=== PATIENT | female | born 1950 | race Caucasian/White ===

== ENCOUNTER 2017-06-01 08:07 | Day surgery (SDC) | payer MEDICARE ==
[2017-05-31 12:33] VITALS: BMI 42.9
[~2017-06-01 08:07] MED LIST: Dexamethasone 20 MG/5 ML VIAL ONE; Glycopyrrolate 0.2 MG/ML 5 ML SYRINGE ONE; Ketorolac Tromethamine 30 MG/ML VIAL ONE; Lidocaine 1% PF 5 ML VIAL ONE; Ondansetron HCl/PF 4 MG/2 ML Vial ONE; PHENYLEPHRINE-NS 100 MCG/ML 10 ML SYRINGE ONE; PROPOFOL 200 MG/20 ML VIAL ONE; ePHEDrine/0.9% NaCl/PF SYRINGE 50 mg/10 ml ONE
[2017-06-01] MEDS ORDERED: Bacitracin Zinc Ointment 30 gm TUBE ONE (08:58)
[2017-06-01] MEDS ORDERED: Thrombin 5000 UNITS/5 ML VIAL ONE (08:58)
[2017-06-01] MEDS ORDERED: Sodium Chloride 0.9% 10 ML ONE (08:58)
[2017-06-01] MEDS ORDERED: CEFAZOLIN/Water 2 GM/20 ML SYRINGE ONE (09:15)
[2017-06-01 09:23] LABS: Hemoglobin 13.7 g/dL (12.0-16.0); Mean Corpuscular HGB CONC 31.2 g/dL (32.0-36.0); Mean Corpuscular Hemoglobin 29.8 pg (27.0-31.0); Mean Corpuscular Volume 95.5 fl (81.0-99.0); Mean Platelet Volume 7.7 fL (7.4-10.4); Platelet Count 226 thou/uL (130-400); RBC Distribution Width 11.8 % (11.5-14.5); White Blood Cell (WBC) Count 7.1 thou/uL (4.8-10.8)
[2017-06-01 09:31] LABS: INR-International Normal Ratio 0.9; PTT 26.6 SEC (22.9-36.1); Prothrombin Time 12.6 SEC (12.0-14.7)
[2017-06-01 09:37] LABS: Anion Gap 16 mmol/L (10-20); BUN (Urea Nitrogen) 17 mg/dL (9.8-20.1); Calc. Creatinine Clearance 119 mL/min (70-130); Calcium 9.3 mg/dL (7.8-10.44); Carbon Dioxide 20 mmol/L (23-31); Chloride 107 mmol/L (98-107); Estimated GFR-MDRD 71; Glucose 164 mg/dL (80-115); Potassium 4.3 mmol/L (3.5-5.1); Sodium 139 mmol/L (136-145)
[2017-06-01] MEDS ORDERED: Fentanyl 100 MCG/2 ML VIAL ONE ×4 (09:43→13:44)
--- NOTE | 2017-06-01 12:07 | OP ---
DATE OF PROCEDURE: 06/01/2017 SURGEON: Flex Celaya M.D. GLASS SCULLION: Jame Romero PA-C OR: OR #12 WOUND TYPE: Type 1 wound. PREPROCEDURE DIAGNOSES: Multilevel lumbar stenosis with low back and leg pain. POSTPROCEDURE DIAGNOSES: Multilevel lumbar stenosis with low back and leg pain. PROCEDURE: L3-L4, L4-L5 laminectomies, partial facetectomies and foraminotomies over the L3, L4, L5 nerve roots bilaterally. DESCRIPTION OF PROCEDURE: After informed consent was obtained from the patient, the patient brought to OR 12. Proper patient pause and identification was carried out. She was placed in excellent endo tracheal anesthesia and positioned prone on the operating table. All appropriate points were padded. We anca out a linear irais over the L3, L4, L5 dorsal spines and this region was sterilely cleansed, prepared, and draped. Proper patient pause and identification was carried out. The wound was then opened with a combination of sharp, monopolar and blunt dissection. The L3, L4, L5 dorsal spines and lamina were exposed and localization film confirmed our area of interest. We then performed an L3, L4, L5 laminectomies, partial facetectomies and foraminotomies over the L3, L4, L5 nerve roots. We h ad excellent decompression of the common dural tube and the nerve roots and copious irrigation occurr ed throughout as did maximizing hemostasis. The wound was then closed following the sprinkling of va ncomycin powder in anatomic layers. The patient emerged from anesthesia.
[2017-06-01] MEDS ORDERED: HYDROmorphone 0.5 MG/0.5 ML SYRINGE ONE (12:18)
[2017-06-01] MEDS ORDERED: Bisacodyl 10 MG SUPP PR PRN (12:49)
[2017-06-01] MEDS ORDERED: Acetaminophen 325 MG TAB PO PRN (12:49)
[2017-06-01] MEDS ORDERED: Milk Of Magnesia 30 ML UDCUP PO PRN (12:49)
[2017-06-01] MEDS ORDERED: Fleet Enema 133 ML BOT PR PRN (12:49)
[2017-06-01] MEDS ORDERED: Mag-Al 1200 mg/1200 mg/30 ML UDCUP PO PRN (12:49)
[2017-06-01] MEDS ORDERED: Promethazine HCl 25 MG/ML VIAL IM PRN ×2 (12:49→12:56)
[2017-06-01] MEDS ORDERED: clonazePAM 1 MG TAB PO PRN (12:52)
[2017-06-01] MEDS ORDERED: Ondansetron HCl/PF 4 MG/2 ML Vial IVP PRN (12:56)
[2017-06-01] MEDS ORDERED: HYDROmorphone 2 MG/ML VIAL SLOW IVP PRN (12:56)
[2017-06-01] MEDS ORDERED: Promethazine HCl 25 MG/ML VIAL SLOW IVP PRN (12:56)
[2017-06-01] MEDS: Morphine 2 MG/ML SYRINGE SLOW IVP PRN (15:52)
--- NOTE | 2017-06-01 16:38 | EKG ---
Test Reason : PREOP Blood Pressure : / mmHG Vent. Rate : 052 BPM Atrial Rate : 052 BPM P-R Int : 180 ms QRS Dur : 090 ms QT Int : 444 ms P-R-T Axes : 043 046 042 degrees QTc Int : 412 ms Sinus bradycardia with sinus arrythmia Otherwise normal ECG No previous ECGs available Confirmed by DR. Viola TINAJERO ([id number]) on 06/01/2017 4:38:09 PM Referred By: POALA Confirmed By:DR. Viola TINAJERO
[2017-06-01] MEDS: CEFAZOLIN/Water 2 GM/20 ML SYRINGE SLOW IVP SCH (17:02)
[2017-06-01] MEDS: Meclizine HCl 25 MG TAB PO SCH ×2 (17:02→20:40)
[2017-06-01] MEDS: Sodium Chloride 0.9% 1,000 ML IV SCH (17:02)
[2017-06-01] MEDS: Donepezil HCl 10 MG TAB PO SCH (20:39)
[2017-06-01] MEDS: Gabapentin 300 MG CAP PO SCH (20:40)
[2017-06-01] MEDS: Acetaminophen/Codeine 30-300mg Tablet PO PRN (20:42)
[2017-06-01] MEDS ORDERED: FLU VACC TS2017-18 (>65YR) 0.5 ML SYRINGE IM ONE (21:00)
[2017-06-01] MEDS ORDERED: Prevnar 13-Val Conj/PF 0.5 ML SYRINGE IM ONE (21:00)
[2017-06-01] MEDS ORDERED: Donepezil HCl 10 MG TAB PO SCH (21:00)
[2017-06-01] MEDS: Glimepiride 2 MG TAB PO SCH (21:33)
[2017-06-01] MEDS: clonazePAM 0.5 MG TAB PO PRN (22:48)
[2017-06-01] MEDS: HYDROcodone/Acetaminophen 7.5/325 mg Tablet PO PRN (22:48)
[2017-06-02] MEDS: CEFAZOLIN/Water 2 GM/20 ML SYRINGE SLOW IVP SCH (00:38)
[2017-06-02] MEDS: Sodium Chloride 0.9% 1,000 ML IV SCH ×2 (02:37→15:39)
--- NOTE | 2017-06-02 08:13 | PRG ---
DATE OF SERVICE: 06/02/2017 Ms. Wilkerson is postoperative day 1 from L3-L5 laminectomy. She this morning states that she has no leg pain, but has some pain in her back. She lives at home alone. Her recently and as such, she is going to need placement. I would like her to go to inpatient rehab as I think th is will maximize her outcome. We have placed the appropriate consults. I should note on exam she is alert, appropriate with excellent strength. We will work towards disposition.
[2017-06-02] MEDS: Meclizine HCl 25 MG TAB PO SCH ×3 (10:01→20:49)
[2017-06-02] MEDS: Glimepiride 2 MG TAB PO SCH ×3 (10:02→21:04)
[2017-06-02] MEDS: Acetaminophen/Codeine 30-300mg Tablet PO PRN (11:05)
[2017-06-02] MEDS: HYDROcodone/Acetaminophen 7.5/325 mg Tablet PO PRN ×2 (13:41→21:02)
[2017-06-02] MEDS: Morphine 2 MG/ML SYRINGE SLOW IVP PRN (20:44)
[2017-06-02] MEDS: Donepezil HCl 10 MG TAB PO SCH (20:49)
[2017-06-02] MEDS: Gabapentin 300 MG CAP PO SCH (20:50)
[2017-06-02] MEDS: tiZANidine HCl 4 MG TAB PO PRN (21:02)
[2017-06-03] MEDS: Sodium Chloride 0.9% 1,000 ML IV SCH ×2 (05:51→17:17)
[2017-06-03] MEDS: HYDROcodone/Acetaminophen 7.5/325 mg Tablet PO PRN ×4 (06:08→22:22)
[2017-06-03] MEDS: Meclizine HCl 25 MG TAB PO SCH ×4 (07:33→20:40)
[2017-06-03] MEDS: Glimepiride 2 MG TAB PO SCH ×2 (09:09→20:40)
[2017-06-03] MEDS: traMADol HCl 50 MG TAB PO PRN (14:54)
[2017-06-03] MEDS: Donepezil HCl 10 MG TAB PO SCH (20:40)
[2017-06-03] MEDS: Gabapentin 300 MG CAP PO SCH (20:41)
[2017-06-04] MEDS: Sodium Chloride 0.9% 1,000 ML IV SCH ×2 (07:34→20:42)
[2017-06-04] MEDS: traMADol HCl 50 MG TAB PO PRN (08:38)
[2017-06-04] MEDS: Glimepiride 2 MG TAB PO SCH ×2 (08:38→20:28)
[2017-06-04] MEDS: Meclizine HCl 25 MG TAB PO SCH ×3 (08:38→20:27)
[2017-06-04] MEDS: HYDROcodone/Acetaminophen 7.5/325 mg Tablet PO PRN ×2 (11:14→17:30)
[2017-06-04] MEDS: Gabapentin 300 MG CAP PO SCH (20:27)
[2017-06-04] MEDS: Donepezil HCl 10 MG TAB PO SCH (20:28)
[2017-06-05] MEDS: Glimepiride 2 MG TAB PO SCH ×2 (08:50→22:08)
[2017-06-05] MEDS: Meclizine HCl 25 MG TAB PO SCH ×3 (08:50→22:08)
[2017-06-05] MEDS: HYDROcodone/Acetaminophen 7.5/325 mg Tablet PO PRN ×3 (08:52→22:09)
[2017-06-05] MEDS: Sodium Chloride 0.9% 1,000 ML IV SCH (08:54)
--- NOTE | 2017-06-05 09:36 | PRG ---
DATE OF SERVICE: 06/05/2017 Ms. Wilkerson is postoperative day 4 following lumbar decompression. She has been mobilizing. She wi ll need rehab. Neurologically, she is at her baseline. She states she has had some leg pain, but I let her know this will simply take time. She needs to mobilize more though. We are arranging dispo sition.
[2017-06-05] MEDS: Donepezil HCl 10 MG TAB PO SCH (22:08)
[2017-06-05] MEDS: Gabapentin 300 MG CAP PO SCH (22:08)
[2017-06-06] MEDS: Sodium Chloride 0.9% 1,000 ML IV SCH ×2 (01:16→13:25)
[2017-06-06] MEDS: Glimepiride 2 MG TAB PO SCH ×2 (07:49→17:03)
[2017-06-06] MEDS: HYDROcodone/Acetaminophen 7.5/325 mg Tablet PO PRN ×3 (07:49→21:38)
[2017-06-06] MEDS: Meclizine HCl 25 MG TAB PO SCH ×3 (08:59→21:34)
--- NOTE | 2017-06-06 13:47 | PRG ---
DATE OF SERVICE: 06/06/2017 SUBJECTIVE: Ms. Wilkerson is now postoperative day #5, having undergone multilevel lumbar laminectomy . The patient states she is doing well postoperatively. She has occasional incisional back pain berenice t is controlled with oral medications. She has no radicular complaints. She has been doing minimal activity with physical therapy. She has good strength in the bilateral lower extremities. Her incis ion is covered, closed with renee and is clean, dry, and intact without any dehiscence or drainage. The main issue right now is disposition planning. The patient is waiting on insurance approval to go to inpatient rehabilitation. We will continue to follow this patient. Please call with any quest ions or changes in patient's neurologic status.
[2017-06-06] MEDS: Gabapentin 300 MG CAP PO SCH (21:33)
[2017-06-06] MEDS: Donepezil HCl 10 MG TAB PO SCH (21:33)
[2017-06-06] MEDS: clonazePAM 0.5 MG TAB PO PRN (21:39)
[2017-06-07] MEDS: Sodium Chloride 0.9% 1,000 ML IV SCH ×2 (02:35→14:27)
[2017-06-07] MEDS: Meclizine HCl 25 MG TAB PO SCH ×3 (08:35→21:05)
[2017-06-07] MEDS: Glimepiride 2 MG TAB PO SCH ×2 (08:35→17:17)
[2017-06-07] MEDS: HYDROcodone/Acetaminophen 7.5/325 mg Tablet PO PRN ×3 (10:01→21:08)
--- NOTE | 2017-06-07 16:08 | PRG ---
POSTOPERATIVE INPATIENT PROGRESS NOTE This is Jame Romero PA-C, dictating for Dr. Flex Celaya. DATE OF SERVICE: 06/07/2017 SUBJECTIVE: Ms. Wilkerson is now postoperative day #6, undergoing a multilevel lumbar laminectomy. T he patient states that she has some back pain with movement, but otherwise has no leg complaints. [place] has been walking with therapies using a walker. OBJECTIVE: EXTREMITIES: She has good strength in the bilateral lower extremities with intact sensation to light touch throughout. Her incision was examined yesterday and it was clean, dry and intact and closed w ith renee and the nursing staff will redress for her. ASSESSMENT AND PLAN: We hope for dismissal later today, but this chart is pending insurance approval to inpatient rehabilitation. She has good neurologic function and she is pleased with her outcome p ostoperatively.
[2017-06-07] MEDS: Gabapentin 300 MG CAP PO SCH (21:04)
[2017-06-07] MEDS: Donepezil HCl 10 MG TAB PO SCH (21:06)
[2017-06-08] MEDS: Sodium Chloride 0.9% 1,000 ML IV SCH ×2 (03:56→19:39)
[2017-06-08] MEDS: Meclizine HCl 25 MG TAB PO SCH ×3 (08:50→21:18)
[2017-06-08] MEDS: Glimepiride 2 MG TAB PO SCH ×2 (08:51→17:59)
[2017-06-08] MEDS: HYDROcodone/Acetaminophen 7.5/325 mg Tablet PO PRN (08:57)
[2017-06-08] MEDS: traMADol HCl 50 MG TAB PO PRN (15:15)
--- NOTE | 2017-06-08 16:46 | PRG ---
DATE OF SERVICE: 06/08/2017 SUBJECTIVE: Ms. Wilkerson is now hospital day #7 following an uncomplicated lumbar laminectomy. The biggest issue at this point has been disposition. Frankly, I have recommended inpatient rehabilitati on or at a minimum residential facility. Evidently, her insurance company felt like the patient was doing too well for inpatient rehabilitation. The family has expressed concerns in this regard an d I have spoken with inpatient rehabs coordinator and also with our social science analyst extensively. We duckworth ve also contacted the insurance company on 2 occasions today for peer to peer as it was recommended i f he wanted to pursue inpatient rehabilitation, then we could do a peer to peer . We only got a voic e mail and no response. As such, we will pursue residential facility, which she has been accepte d to the families and satisfied with this. I should note clinically the patient's wound continues to remain dry. Neurologically, she has good strength throughout her lower extremity myotomes. She is ambulating, but the patient lives at home alone and her recently . She will need more attention than just home health and as such again I advocate for placement in inpatient rehab or residential facility, but given all of the above, we will pursue residential.
[2017-06-08] MEDS: tiZANidine HCl 4 MG TAB PO PRN (18:04)
[2017-06-08] MEDS: Donepezil HCl 10 MG TAB PO SCH (21:18)
[2017-06-08] MEDS: Gabapentin 300 MG CAP PO SCH (21:18)
[2017-06-09] MEDS: Sodium Chloride 0.9% 1,000 ML IV SCH ×2 (07:07→19:38)
[2017-06-09] MEDS: Meclizine HCl 25 MG TAB PO SCH ×3 (08:39→21:14)
[2017-06-09] MEDS: Glimepiride 2 MG TAB PO SCH ×2 (08:39→16:35)
--- NOTE | 2017-06-09 13:23 | PRG ---
POSTOPERATIVE INPATIENT PROGRESS NOTE This is Jame Romero PA-C, dictating for Dr. Flex Celaya. DATE OF SERVICE: 06/09/2017 SUBJECTIVE: Ms. Wilkerson is now postoperative day #8, having undergone decompressive lumbar laminect omies. The patient states that she is doing well. She occasionally has incisional back pain with mo vement. She continues to deny leg pain. She has been getting herself to the shower and walking with a walker. She has been able to work with physical therapy. She remains at her neurologic baseline with good strength in the bilateral lower extremities. She has had no issues with her incision. The main issue for her right now is discharge planning. [id number] with her insurance company were co mpleted yesterday and hope to get the patient inpatient rehabilitation due to her multiple comorbidit ies including obesity, dementia, and impaired mobility due to recent surgery. This was denied by her insurance, though she was approved for penitentiary. Case management has been diligent working w ith the patient. However, at this time, the patient has decided that [facility] and has herself arranged transportation from a friend to go home. [place] e management is attempting to discuss this with the patient's daughters. Frankly, at this time, I am had losses what we can do as the patient is stating that she would like to go home and will, however , need care postoperatively to help with dressing changes and mobility. Again, case management will continue to work with the family. We are awaiting discharge as the patient is ready at any time. Pl ease call with any questions or concerns.
[2017-06-09] MEDS: Gabapentin 300 MG CAP PO SCH (21:14)
[2017-06-09] MEDS: Donepezil HCl 10 MG TAB PO SCH (21:14)
[2017-06-09] MEDS: HYDROcodone/Acetaminophen 7.5/325 mg Tablet PO PRN (21:15)
--- NOTE | 2017-06-10 07:23 | PRG ---
DATE OF SERVICE: 06/10/2017 Ms. Wilkerson is a 67-year-old female, who is status post day [address] Celaya. Discharg e orders have been put in, as she is stable to go home. She has been unable to ambulate and her pain is well controlled with pain medication. She can tolerate regular diet. Case management has been w orking on placing her in a SNF for rehabilitation; however, she has been working with physical therap y here and has improved significantly and likely can go home by herself. She needs to make arrangeme nts with her daughter to be picked up sometime today. If there are any further questions, please fee l free to contact Neurosurgery.
[2017-06-10] MEDS: Glimepiride 2 MG TAB PO SCH (09:05)
[2017-06-10] MEDS: Meclizine HCl 25 MG TAB PO SCH (09:05)
--- NOTE | 2017-06-10 09:18 | PRG ---
DATE OF SERVICE: 06/10/2017 NEUROSURGERY PROGRESS NOTE Overnight, Ms. Wilkerson has been afebrile. Her recorded vital signs are stable. I saw her this morn ing walking in the hallway. She has already made entire lap around the floor. She is up and standin g at the community associate desk visiting with our community associate and she is frustrated that her daughter is complaining about her discharge. She wants me to call her family member, although there is no on e here to talk to her directly. Ms. Wilkerson's incision is healing well. Her legs are moving nicely. She is ready for going home. She tells me she is safe for all her activities of daily living and has no problems, living in her ho me. Follow up arrangements have been made, home going activity restrictions have been discussed and wound care are gone over. I will reach out to the family this morning. Our service plans to dischar ge her today.
[2017-06-10 09:19] VITALS: BP 156/63; TEMP 97.6
== END 2017-06-10 12:30 | disposition home or self-care (01) ==
LOC: SDC 08:07 → SJJU 12:49 → SURG A 06-03 13:48 → SDC 06-10 12:30
PROVIDERS: ATTEND Surgery
PROC: 01NB0ZZ Release Lumbar Nerve, Open Approach (ICD-10-PCS; principal; 2017-06-01)
DX: M48.061 Spinal stenosis, lumbar region without neurogenic claudication (principal); M54.16 Radiculopathy, lumbar region; Z79.82 Long term (current) use of aspirin; Z79.84 Long term (current) use of oral hypoglycemic drugs; Z79.899 Other long term (current) drug therapy
CPT/HCPCS: 63047; 63048 ×2; 76001; 80048; 85027; 85610; 85730; 93005; 96374; 97110 ×6; 97116 ×7; 97139 ×6; 97530 ×3; G0008; G8978; G8979; G8987; G8988; Q2036; 36415; 90471; 90682; 93010; A4216; J1100; J1170; J1885; J2001; J2270; J2405; J2704; J3010; J3370; J3490

== ENCOUNTER 2017-09-05 12:23 | Day surgery (SDC) | payer MEDICARE ==
[2017-09-04 17:27] VITALS: BMI 36.8
--- NOTE | 2017-09-05 14:48 | RAD ---
LATERAL NEUTRAL FLEXION AND EXTENSION IMAGING LUMBAR SPINE: DATE: 09/05/17. COMPARISON: None. HISTORY: Evaluate lumbar spine prior to MRI. FINDINGS: The patient appears status post bilateral laminectomy at L3, L4, and L5. There is mild superior end plate fracture at L2 of indeterminate age with mild loss of vertebral body height centrally. At the L4-5 on neutral imaging, there is anterolisthesis measuring in the 4 mm range. With extension, there is minimal anterolisthesis at L4-5 and L5-S1 measuring less than 3 mm. With fl exion, anterolisthesis at L4-5 measures 6 mm. Detailed assessment is limited secondary to rotation. IMPRESSION: Postoperative and degenerative change noted within the lumbar spine. There is a mild age-indetermina te superior end plate fracture involving L2 vertebral body. There is anterolisthesis of L4 on L5 jim suring 4 mm on neutral imaging and 6 mm on flexion imaging. POS: LIDA
[2017-09-05] MEDS ORDERED: Gadobenate Dimeglumine 529 MG/1 ML (20ML VIAL) ONE (15:12)
--- NOTE | 2017-09-05 16:45 | MRI ---
MRI OF THE LUMBAR SPINE WITH AND WITHOUT CONTRAST 09/05/17 HISTORY: Surgery, back pain. COMPARISON: 12/13/16. TECHNIQUE: Multiplanar and multisequence MR imaging of the lumbar spine is provided with and without contrast. The sagittal STIR imaging demonstrates no focal area of osseous marrow edema. There is dextroscoliosis involving the mid lumbar spine. Assuming five lumbar type vertebral bodies, the conus medullaris terminates at the L1-2 level. At T10-11 and T11-12, there is disc space narrowing with disc desiccation. No associated central rachel l or neural foraminal stenosis. T12-L1: There is disc space narrowing, disc desiccation, and mild disc bulge. There is mild bilateral facet hypertrophy. There is no significant central canal or neural foraminal stenosis. L1-2: There is disc space narrowing, disc desiccation and degenerative end plate change. There is nhan ateral facet hypertrophy, right greater than left. There is a left paracentral/foraminal/post foramin al disc protrusion at L1-2 causing prominent left lateral recess stenosis. Disc protrusion in combina tion with facet hypertrophy causes severe left neural foraminal stenosis as well. No significant ri ght neural foraminal stenosis. Findings are similar when compared to the prior examination. L2-3: There is disc space narrowing and disc desiccation. There is a small central disc protrusion. T here is bilateral facet hypertrophy. There is mild central canal stenosis and mild bilateral neural f oraminal stenosis. L3-4: There is disc space narrowing and disc desiccation with mild disc bulge. Bilateral laminectomy changes are noted with no significant central canal stenosis. There is bilateral facet hypertrophy wi th moderate bilateral neural foraminal stenosis, left greater than right. L4-5: There is disc space narrowing and disc desiccation. Bilateral laminectomy changes are noted wit h no significant central canal stenosis. There is bilateral facet hypertrophy, right greater than lef t, with moderate/severe right neural foraminal stenosis and mild to moderate left neural foraminal st enosis. L5-S1: There is disc space narrowing and disc desiccation with mild disc bulge. There is mild bilater al facet hypertrophy with no significant central canal or neural foraminal stenosis. Nonspecific postoperative fluid collection noted in the subcutaneous fat posterior to the L3-4 inters pace measuring 4.7 cm craniocaudal dimension, 2.9 cm AP dimension, and 1.3 cm transverse dimension, n onspecific. The postcontrast imaging demonstrates no abnormal enhancement involving nerve roots of the cauda equi na, contents of the thecal sac, the intervertebral discs, or the imaged osseous structures. Imaged retroperitoneal structures demonstrate no acute findings. IMPRESSION: Multilevel postoperative and degenerative change noted within the lumbar spine as detailed above. The re is significant left lateral recess stenosis and left neural foraminal stenosis at the L1-2 level. POS: LIDA
== END 2017-09-05 15:15 | disposition home or self-care (01) ==
LOC: SDC/OP 12:23
PROVIDERS: ATTEND Surgery
DX: M48.061 Spinal stenosis, lumbar region without neurogenic claudication (principal); M43.16 Spondylolisthesis, lumbar region; M47.26 Other spondylosis with radiculopathy, lumbar region; E66.9 Obesity, unspecified; Z68.36 Body mass index [BMI] 36.0-36.9, adult
CPT/HCPCS: 36415; 72100; 72158; 82565; A9579